=== PATIENT | male | born 1990 | race Caucasian/White ===

== ENCOUNTER 2016-08-02 22:00 | Emergency (ER) | payer MEDICAID ==
[~2016-08-02 22:00] MED LIST: No Historical Meds
[2016-08-02] MEDS ORDERED: AUGMENTIN 875 MG TAB As Ordered ONE (23:42)
[2016-08-02] MEDS ORDERED: NORCO 5/325MG TABLET (BULK) As Ordered ONE (23:42)
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
--- NOTE | 2016-08-02 23:53 | EDDOCDS ---
Physician Documentation [facility] Name: Mic Keating Age: 25 yrs Sex: Male : 1990 Arrival Date: 08/02/2016 Time: 22:00 Bed I2 / M2 Private MD: [facility] - Adults Disposition: 08/02/16 23:42 Discharged to Home/Self Care. Impression: Laceration without foreign body of oral cavity - tongue. - Condition is Stable. - Discharge Instructions: Mouth Laceration, Tongue Laceration. - Prescriptions for Augmentin 875- 125 mg Oral Tablet - take 1 tablet by ORAL route every 12 hours for 10 days; 20 tablet. - Medication Reconciliation, Local Pharmacy Hours form. - Follow up: [facility] - Adults; When: Call to arrange an appointment; Reason: Recheck today's complaints, Continuance of care. - Problem is new. - Symptoms are unchanged. Historical: - Allergies: No known drug Allergies; - Home Meds: 1. none - PMHx: none; - PSHx: none; - Social history: Smoking status: Patient uses tobacco products, heavy tobacco smoker. No barriers to communication noted, The patient speaks fluent Dutch, Speaks appropriately for age. - Family history: Not pertinent. - : The pt / caregiver states he / she is not on anticoagulants. Home medication list is obtained from the patient. - Exposure Risk Screening:: None identified. Vital Signs: 08/02 22:01 BP 127 / 60; Pulse 67; Resp 18 S; Temp 98.0(T); Pulse Ox 100% on R/A; Weight 63.5 kg / dd6 139.99 lbs (R); Height 5 ft. 9 in. (175.26 cm) (R); 23:50 BP 120 / 70; Pulse 72; Resp 18; Temp 96.5(O); Pulse Ox 98% on R/A; Pain 0/10; jmb 22:01 Body Mass Index 20.67 (63.50 kg, 175.26 cm) dd6 MDM: 23:41 HYDROcodone-acetaminophen 4 pack- 5 mg-325 mg 1 packets PO Per package directions; mo1 Dispense with patient. 1 po q4h prn for pain ordered. 23:41 Amoxicillin-Clavulanate 875 mg 1 tabs PO once ordered. mo1 Administered Medications: 23:46 Drug: HYDROcodone-acetaminophen 4 pack- 1 packets [hydrocodone 5 mg-acetaminophen 325 af2 mg tablet (1 tabs)] {Co-Signature: anam (Home Muller RN).} Route: PO; 23:46 Drug: Amoxicillin-Clavulanate 1 tabs [amoxicillin 875 mg-potassium clavulanate 125 mg af2 tablet (1 tabs)] Route: PO; Signatures: Abdulaziz Alvarado PA PA mo1 Home Muller RN RN kindrab Kaylin Camargo RN af2 Home mendieta MTDD
--- NOTE | 2016-08-05 00:53 | EDDOCDS ---
Physician Documentation [facility] Name: Mic Keating Age: 25 yrs Sex: Male : 1990 Arrival Date: 08/02/2016 Time: 22:00 Bed I2 / M2 Private MD: [facility] - Adults Disposition: 08/02/16 23:42 Discharged to Home/Self Care. Impression: Laceration without foreign body of oral cavity - tongue. - Condition is Stable. - Discharge Instructions: Mouth Laceration, Tongue Laceration. - Prescriptions for Augmentin 875- 125 mg Oral Tablet - take 1 tablet by ORAL route every 12 hours for 10 days; 20 tablet. - Medication Reconciliation, Local Pharmacy Hours form. - Follow up: [facility] - Adults; When: Call to arrange an appointment; Reason: Recheck today's complaints, Continuance of care. - Problem is new. - Symptoms are unchanged. Historical: - Allergies: No known drug Allergies; - Home Meds: 1. none - PMHx: none; - PSHx: none; - Social history: Smoking status: Patient uses tobacco products, heavy tobacco smoker. No barriers to communication noted, The patient speaks fluent Ukrainian, Speaks appropriately for age. - Family history: Not pertinent. - : The pt / caregiver states he / she is not on anticoagulants. Home medication list is obtained from the patient. - Exposure Risk Screening:: None identified. Vital Signs: 08/02 22:01 BP 127 / 60; Pulse 67; Resp 18 S; Temp 98.0(T); Pulse Ox 100% on R/A; Weight 63.5 kg / dd6 139.99 lbs (R); Height 5 ft. 9 in. (175.26 cm) (R); 23:50 BP 120 / 70; Pulse 72; Resp 18; Temp 96.5(O); Pulse Ox 98% on R/A; Pain 0/10; jmb 22:01 Body Mass Index 20.67 (63.50 kg, 175.26 cm) dd6 MDM: 23:41 HYDROcodone-acetaminophen 4 pack- 5 mg-325 mg 1 packets PO Per package directions; mo1 Dispense with patient. 1 po q4h prn for pain ordered. 23:41 Amoxicillin-Clavulanate 875 mg 1 tabs PO once ordered. mo1 08/03 08:01 T-Sheet-- Draft Copy was scanned into [employer] and attached to record. [facility] Administered Medications: 08/02 23:46 Drug: HYDROcodone-acetaminophen 4 pack- 1 packets [hydrocodone 5 mg-acetaminophen 325 af2 mg tablet (1 tabs)] {Co-Signature: anam (Home Muller RN).} Route: PO; 23:46 Drug: Amoxicillin-Clavulanate 1 tabs [amoxicillin 875 mg-potassium clavulanate 125 mg af2 tablet (1 tabs)] Route: PO; Signatures: Abdulaziz Alvarado PA PA mo1 Home Muller RN RN kindrab Dinah Lagos Amber RN af2 Home mendieta The chart was reviewed and I authenticate all verbal orders and agree with the evaluation and treatment provided.Attachments: 08/03 08:01 T-Sheet-- Draft Copy [facility] Chart Complete MTDD
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
--- NOTE | 2016-08-05 00:53 | EDDOCDS ---
Physician Documentation [facility] Name: Mic Keating Age: 25 yrs Sex: Male : 1990 Arrival Date: 08/02/2016 Time: 22:00 Bed I2 / M2 Private MD: [facility] - Adults Disposition: 08/02/16 23:42 Discharged to Home/Self Care. Impression: Laceration without foreign body of oral cavity - tongue. - Condition is Stable. - Discharge Instructions: Mouth Laceration, Tongue Laceration. - Prescriptions for Augmentin 875- 125 mg Oral Tablet - take 1 tablet by ORAL route every 12 hours for 10 days; 20 tablet. - Medication Reconciliation, Local Pharmacy Hours form. - Follow up: [facility] - Adults; When: Call to arrange an appointment; Reason: Recheck today's complaints, Continuance of care. - Problem is new. - Symptoms are unchanged. Historical: - Allergies: No known drug Allergies; - Home Meds: 1. none - PMHx: none; - PSHx: none; - Social history: Smoking status: Patient uses tobacco products, heavy tobacco smoker. No barriers to communication noted, The patient speaks fluent Bangladeshi, Speaks appropriately for age. - Family history: Not pertinent. - : The pt / caregiver states he / she is not on anticoagulants. Home medication list is obtained from the patient. - Exposure Risk Screening:: None identified. Vital Signs: 08/02 22:01 BP 127 / 60; Pulse 67; Resp 18 S; Temp 98.0(T); Pulse Ox 100% on R/A; Weight 63.5 kg / dd6 139.99 lbs (R); Height 5 ft. 9 in. (175.26 cm) (R); 23:50 BP 120 / 70; Pulse 72; Resp 18; Temp 96.5(O); Pulse Ox 98% on R/A; Pain 0/10; jmb 22:01 Body Mass Index 20.67 (63.50 kg, 175.26 cm) dd6 MDM: 23:41 HYDROcodone-acetaminophen 4 pack- 5 mg-325 mg 1 packets PO Per package directions; mo1 Dispense with patient. 1 po q4h prn for pain ordered. 23:41 Amoxicillin-Clavulanate 875 mg 1 tabs PO once ordered. mo1 08/03 08:01 T-Sheet-- Draft Copy was scanned into [employer] and attached to record. [facility] Administered Medications: 08/02 23:46 Drug: HYDROcodone-acetaminophen 4 pack- 1 packets [hydrocodone 5 mg-acetaminophen 325 af2 mg tablet (1 tabs)] {Co-Signature: anam (Home Muller RN).} Route: PO; 23:46 Drug: Amoxicillin-Clavulanate 1 tabs [amoxicillin 875 mg-potassium clavulanate 125 mg af2 tablet (1 tabs)] Route: PO; Signatures: Abdulaziz Alvarado PA PA mo1 Home Muller RN RN kindrab Dinah Lagos Amber RN af2 Home mendieta The chart was reviewed and I authenticate all verbal orders and agree with the evaluation and treatment provided.Attachments: 08/03 08:01 T-Sheet-- Draft Copy [facility] Chart Complete MTDD
== END 2016-08-02 23:52 | disposition home or self-care (01) ==
LOC: M ED 22:00
DX: S01.512A Laceration without foreign body of oral cavity, initial encounter (principal); W45.8XXA Other foreign body or object entering through skin, initial encounter; Y92.89 Other specified places as the place of occurrence of the external cause; Y93.89 Activity, other specified; Y99.8 Other external cause status; F17.200 Nicotine dependence, unspecified, uncomplicated

== ENCOUNTER → 2017-02-09 | Outpatient (CLI) | payer MEDICAID ==
[~2017-02-09] MED LIST changes: +CELE20TA PO; +HYDRO50TAB PO; +NICO21PAT TD; +TRAZO50TA PO
== END ==
LOC: M OUTALCOH 07:55
PROVIDERS: ATTEND Psychiatry & Neurology Psychiatry
DX: Z13.9 Encounter for screening, unspecified (principal); F11.20 Opioid dependence, uncomplicated; F14.20 Cocaine dependence, uncomplicated; F15.20 Other stimulant dependence, uncomplicated

== ENCOUNTER → 2017-03-19 | Outpatient (RCR) | payer MEDICAID | LOC: M OUTALCOH 03-05 18:18 | PROVIDERS: ATTEND Psychiatry & Neurology Psychiatry | DX: Z13.9 Encounter for screening, unspecified (principal); F11.20 Opioid dependence, uncomplicated; F14.20 Cocaine dependence, uncomplicated; F15.20 Other stimulant dependence, uncomplicated; F17.200 Nicotine dependence, unspecified, uncomplicated ==

== ENCOUNTER 2017-04-17 15:00 | Outpatient (RCR) | payer MEDICAID ==
[~2017-04-17 15:00] MED LIST changes: -CELE20TA PO; -HYDRO50TAB PO; -NICO21PAT TD; -TRAZO50TA PO
== END 2017-04-18 ==
LOC: M OUTALCOH 15:00
PROVIDERS: ATTEND Psychiatry & Neurology Psychiatry
DX: F11.20 Opioid dependence, uncomplicated (principal); F14.20 Cocaine dependence, uncomplicated; F15.20 Other stimulant dependence, uncomplicated; F17.200 Nicotine dependence, unspecified, uncomplicated

== ENCOUNTER 2017-04-22 08:41 | Inpatient (IN) | payer MEDICAID, SELFPAY ==
[~2017-04-22] VITALS: Ht 175.3 cm; Wt 59.0 kg
[2017-04-22 09:43] LABS: MEAN CORPUSCULAR HEMOGLOBIN 30.5 pg (27.0-33.0); MEAN CORPUSCULAR HGB CONC 34.6 g/dl (32.0-36.5); MEAN CORPUSCULAR VOLUME 88.3 fl (80.0-96.0); RED CELL DISTRIBUTION WIDTH 13.4 % (11.5-14.5); WHITE BLOOD COUNT 4.3 10^3/uL (4.0-10.0)
[2017-04-22] MEDS ORDERED: LORazepam 2 MG TAB PO STA (10:10)
[2017-04-22 10:13] LABS: METHADONE URINE NEGATIVE (NEGATIVE)
[2017-04-22] MEDS ORDERED: NICOTINE 21MG/24HR 1 EA TRANSDERMAL TD ONE (10:15)
[2017-04-22 10:21] LABS: ALBUMIN 4.4 GM/DL (3.2-5.2); ALBUMIN/GLOBULIN RATIO 1.19 (1.00-1.93); ALKALINE PHOSPHATASE 50 U/L (45-117); ALT/SGPT 28 U/L (12-78); ANION GAP 10 MEQ/L (8-16); AST/SGOT 25 U/L (15-37); BILIRUBIN,DIRECT 0.1 MG/DL (0.0-0.2); BILIRUBIN,TOTAL 0.3 MG/DL (0.2-1.0); BLOOD UREA NITROGEN 8 MG/DL (7-18); CALCIUM LEVEL 8.7 MG/DL (8.5-10.1); CARBON DIOXIDE LEVEL 25 MEQ/L (21-32); CHLORIDE LEVEL 107 MEQ/L (98-107); CREATININE FOR GFR 0.84 MG/DL (0.70-1.30); GLOMERULAR FILTRATION RATE > 60.0 (>60); GLUCOSE, FASTING 89 MG/DL (70-105); POTASSIUM SERUM 4.1 MEQ/L (3.5-5.1); SODIUM LEVEL 142 MEQ/L (136-145); TOTAL PROTEIN 8.1 GM/DL (6.4-8.2)
[2017-04-22] MEDS ORDERED: MOM 30ML SUSPENSION UDC PO PRN (16:00)
[2017-04-22] MEDS ORDERED: traZODone 50 MG TAB PO PRN (16:00)
[2017-04-22] MEDS ORDERED: MAALOX 30 ML SUSP *UDC PO PRN (16:00)
[2017-04-22] MEDS: CitaloPRAM (CeleXA) 20 MG TAB PO SCH (16:39)
[2017-04-22] MEDS: traZODone 50 MG TAB PO PRN (20:53)
[2017-04-22] MEDS: hydrOXYzine 50 MG TAB PO PRN (20:53)
[2017-04-23 06:53] VITALS: BP 118/58
[2017-04-23] MEDS: NICOTINE 21MG/24HR 1 EA TRANSDERMAL TD SCH (08:38)
[2017-04-23] MEDS: CitaloPRAM (CeleXA) 20 MG TAB PO SCH (08:38)
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
--- NOTE | 2017-04-23 10:08 | REP ---
CT cervical spine without contrast HISTORY: Attempted hanging COMPARISON: None There is no acute fracture or subluxation. There is no disc bulge or herniation. The spinal canal and neural foramina are patent. The intervertebral discs and vertebral bodies are normal in height. IMPRESSION: There is no acute fracture or subluxation. Signed by Arcenio Lockwood MD 04/23/2017 09:59 A
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
[2017-04-23] MEDS: ACETAMINOPHEN TAB 650MG DOSE (2X325MG) PO PRN (17:22)
[2017-04-23 18:00] VITALS: BP 119/62
[2017-04-23] MEDS: traZODone 50 MG TAB PO PRN (21:26)
[2017-04-23] MEDS: hydrOXYzine 50 MG TAB PO PRN (21:28)
[2017-04-24] MEDS: ACETAMINOPHEN TAB 650MG DOSE (2X325MG) PO PRN ×2 (06:18→12:19)
[2017-04-24 06:32] VITALS: BP 109/56
[2017-04-24] MEDS: CitaloPRAM (CeleXA) 20 MG TAB PO SCH (09:37)
[2017-04-24] MEDS: NICOTINE 21MG/24HR 1 EA TRANSDERMAL TD SCH (09:38)
[2017-04-24] MEDS ORDERED: HYDRO50TAB PO (13:09)
[2017-04-24] MEDS ORDERED: TRAZO50TA PO (13:09)
[2017-04-24] MEDS ORDERED: NICO21PAT TD (13:09)
[2017-04-24] MEDS ORDERED: CELE20TA PO (13:09)
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
== END 2017-04-24 14:30 | disposition home or self-care (01) | DRG 774 ==
LOC: M ED 08:41 → M ED INP 14:07 → M PSY 15:00
PROVIDERS: ADMIT Psychiatry & Neurology Psychiatry; ATTEND Psychiatry & Neurology Psychiatry
DX: F19.94 Other psychoactive substance use, unspecified with psychoactive substance-induced mood disorder (principal); F14.10 Cocaine abuse, uncomplicated; F15.10 Other stimulant abuse, uncomplicated; F10.10 Alcohol abuse, uncomplicated; F17.200 Nicotine dependence, unspecified, uncomplicated

== ENCOUNTER 2019-11-26 22:47 | Emergency (ER) | payer MEDICAID, OTHER, SELFPAY ==
[~2019-11-26] VITALS: Ht 172.7 cm; Wt 61.4 kg
[~2019-11-26 22:47] MED LIST changes: +CELE20TA PO; +HYDR1TAB33 PO; +NICO21PAT TD; +TRAZ1TAB10 PO
[2019-11-27 01:01] VITALS: BP 123/86
== END 2019-11-27 01:03 | disposition home or self-care (01) ==
LOC: M ED 22:47
DX: F43.20 Adjustment disorder, unspecified (principal); F33.9 Major depressive disorder, recurrent, unspecified; Z79.899 Other long term (current) drug therapy; F17.210 Nicotine dependence, cigarettes, uncomplicated; F14.20 Cocaine dependence, uncomplicated; F15.20 Other stimulant dependence, uncomplicated

== ENCOUNTER → 2020-05-08 | Outpatient (REF) | payer OTHER | LOC: M LAB REF 15:22 | PROVIDERS: ATTEND Surgery | DX: U07.1 COVID-19 (principal) ==

== ENCOUNTER 2020-10-23 09:10 | Emergency (ER) | payer OTHER ==
[~2020-10-23] VITALS: Ht 175.3 cm; Wt 59.1 kg
[2020-10-23] MEDS ORDERED: SUBO4MIS SL (09:45)
[2020-10-23] MEDS ORDERED: NS 1,000 ML IV ONE (10:05)
[2020-10-23 10:36] LABS: BASO # 0.1 10^3/uL (0.0-0.2); BASO % 0.3 % (0.0-1.0); EOS % 0.1 % (0.0-3.0); HEMATOCRIT 44.1 % (42.0-52.0); HEMOGLOBIN 14.5 g/dl (13.5-17.5); LYMPH # 0.8 10^3/uL (1.5-5.0); MEAN CORPUSCULAR HEMOGLOBIN 28.6 pg (27.0-33.0); MEAN CORPUSCULAR HGB CONC 32.9 g/dl (32.0-36.5); MONO # 1.1 10^3/uL (0.0-0.8); MONO % 7.3 % (2.0-8.0); NEUTROPHILS # 13.3 10^3/uL (1.5-8.5); NEUTROPHILS % 86.6 % (36.0-66.0); PLATELET COUNT, AUTOMATED 144 10^3/uL (150-450); RED BLOOD COUNT 5.07 10^6/uL (4.30-6.10); WHITE BLOOD COUNT 15.4 10^3/uL (4.0-10.0)
[2020-10-23 10:54] LABS: ALBUMIN 3.9 GM/DL (3.2-5.2); ALT/SGPT 63 U/L (12-78); BILIRUBIN,DIRECT 0.2 MG/DL (0.0-0.2); BILIRUBIN,TOTAL 0.6 MG/DL (0.2-1.0); BLOOD UREA NITROGEN 15 MG/DL (7-18); CARBON DIOXIDE LEVEL 25 MEQ/L (21-32); CHLORIDE LEVEL 102 MEQ/L (98-107); CREATININE FOR GFR 0.62 MG/DL (0.70-1.30); GLOMERULAR FILTRATION RATE > 60.0 (>60); GLUCOSE, FASTING 71 MG/DL (70-100); POTASSIUM SERUM 4.2 MEQ/L (3.5-5.1); SODIUM LEVEL 134 MEQ/L (136-145); TOTAL PROTEIN 7.1 GM/DL (6.4-8.2)
[2020-10-23 11:00] LABS: ERYTHROCYTE SEDIMENTATION RATE 18 mm/hr (0-15)
[2020-10-23 11:04] LABS: MONO REFLEX EBV COMP NEGATIVE (NEGATIVE)
[2020-10-23] MEDS ORDERED: ISOVUE-370 76% 100ML VIAL As Ordered ONE (11:09)
--- NOTE | 2020-10-23 11:53 | REP ---
INDICATION: severe tonsillar swelling, swelling into R side neck. COMPARISON: None. TECHNIQUE: Axial CT images with multiplanar reconstructions with contrast. FINDINGS: The tonsils appear swollen bilaterally, greater on the right. There is no definite abscess formation. There is encroachment on the airway but the airway however the airway remains patent. Vascular structures appear unremarkable. Paranasal sinuses and mastoid air cells appear clear. Scattered cervical chain lymph nodes are noted without CT findings of lymphadenopathy. There is apparent tongue piercing, with metallic object associated with the tongue in midline. IMPRESSION: The tonsils appears swollen bilaterally, greater on the right. The airway remains patent. No definite abscess. No findings of lymphadenopathy. The swelling appears to be limited to the area of the tongue base and supraglottic regions, may extend to the level of the glottis. <Electronically signed by Colton Abreu > 10/23/20 [id number]
[2020-10-23] MEDS ORDERED: AMPICILLIN SOD/SULBACTAM SOD 3 GM in D5W MINI-BAG PLUS 100 ML IV ONE (12:10)
[2020-10-23] MEDS ORDERED: dexameTHASONE 20MG/5ML VIAL (J1100 PER 1MG) IV ONE (12:10)
[2020-10-23] MEDS ORDERED: AUGM875T28 PO (12:27)
[2020-10-23] MEDS ORDERED: ACETAMINOPHEN 325 MG TAB PO ONE (12:30)
[2020-10-23 13:39] VITALS: BP 129/68
[2020-10-24 16:10] LABS: EBV AB TO NUCLEAR ANTIGEN >600.0 U/mL (0.0-17.9); EBV VIRAL CAPSID AG IgM <36.0 U/mL (0.0-35.9)
== END 2020-10-23 14:02 | disposition home or self-care (01) ==
LOC: EDBD 09:10 → M ED 09:10
DX: J03.90 Acute tonsillitis, unspecified (principal); R05 Cough; R07.0 Pain in throat; R50.81 Fever presenting with conditions classified elsewhere; M79.10 Myalgia, unspecified site; F17.200 Nicotine dependence, unspecified, uncomplicated
CPT/HCPCS: 70491; 80048; 80076; 83605; 85025; 85652; 86140; 86308; 86664; 86665; 87040; 87880; 96365; 96375; 99284; J1100; Q9967

== ENCOUNTER 2021-01-11 23:20 | Emergency (ER) | payer OTHER ==
[~2021-01-11 23:20] MED LIST changes: +AUGM875T28 PO; +SUBO4MIS SL
[2021-01-13] MEDS ORDERED: BACI500O21 TOP (00:29)
[2021-01-13] MEDS ORDERED: CEPH500C PO (00:29)
== END 2021-01-12 00:42 | disposition left against medical advice (07) ==
LOC: M ED 23:20
DX: Z53.21 Procedure and treatment not carried out due to patient leaving prior to being seen by health care provider (principal)

== ENCOUNTER 2021-01-12 18:41 | Emergency (ER) | payer OTHER ==
[~2021-01-12] VITALS: Ht 172.7 cm; Wt 55.4 kg
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
[2021-01-12] MEDS ORDERED: LIDOCAINE 1% MDV 20ML VIAL SC ONE (23:40)
[2021-01-13] MEDS ORDERED: NEOSPORIN OINT 0.9 GM PKT TOP ONE (00:10)
[2021-01-13] MEDS ORDERED: BOOSTRIX/ADACEL VACCINE (DIPHTH/PERTUSS/ACELL/TETANUS) 0.5ML SYR IM ONE (00:15)
[2021-01-13] MEDS ORDERED: CEPHALEXIN 500 MG CAP PO ONE (00:15)
[2021-01-13] MEDS ORDERED: CEPH500C PO (00:29)
[2021-01-13] MEDS ORDERED: BACI500O21 TOP (00:29)
[2021-01-13 00:39] VITALS: BP 110/74
== END 2021-01-13 00:41 | disposition home or self-care (01) ==
LOC: M ED 18:41
DX: S61.411A Laceration without foreign body of right hand, initial encounter (principal); W26.8XXA Contact with other sharp object(s), not elsewhere classified, initial encounter; Y92.009 Unspecified place in unspecified non-institutional (private) residence as the place of occurrence of the external cause; Y93.89 Activity, other specified; Y99.9 Unspecified external cause status; F17.200 Nicotine dependence, unspecified, uncomplicated

== ENCOUNTER 2021-10-21 02:30 | Emergency (ER) | payer OTHER ==
[~2021-10-21] VITALS: Ht 172.7 cm; Wt 56.7 kg
[~2021-10-21 02:30] MED LIST changes: +BACI500O21 TOP; +CEPH500C PO
[2021-10-21 03:18] LABS: BASO # 0.1 10^3/uL (0.0-0.2); BASO % 1.5 % (0.0-1.0); EOS # 0.1 10^3/uL (0.0-0.5); EOS % 1.3 % (0.0-3.0); HEMATOCRIT 38.6 % (42.0-52.0); HEMOGLOBIN 13.4 g/dl (13.5-17.5); LYMPH % 22.1 % (24.0-44.0); MEAN CORPUSCULAR HEMOGLOBIN 29.3 pg (27.0-33.0); MEAN CORPUSCULAR HGB CONC 34.7 g/dl (32.0-36.5); MEAN CORPUSCULAR VOLUME 84.3 fl (80.0-96.0); MONO # 0.4 10^3/uL (0.0-0.8); MONO % 8.9 % (2.0-8.0); NEUTROPHILS # 3.1 10^3/uL (1.5-8.5); PLATELET COUNT, AUTOMATED 215 10^3/uL (150-450); RED BLOOD COUNT 4.58 10^6/uL (4.30-6.10); WHITE BLOOD COUNT 4.7 10^3/uL (4.0-10.0)
[2021-10-21 03:35] LABS: INR 1.09; PROTHROMBIN TIME 14.5 SECONDS (12.7-14.5)
[2021-10-21 03:36] LABS: PARTIAL THROMBOPLASTIN TIME 28.5 SECONDS (25.9-37.0)
[2021-10-21 03:38] LABS: ALBUMIN 4.1 GM/DL (3.2-5.2); ALT/SGPT 32 U/L (12-78); AMYLASE 25 U/L (25-115); BILIRUBIN,DIRECT 0.2 MG/DL (0.0-0.2); BILIRUBIN,TOTAL 0.7 MG/DL (0.2-1.0); BLOOD UREA NITROGEN 16 MG/DL (7-18); CARBON DIOXIDE LEVEL 30 MEQ/L (21-32); CHLORIDE LEVEL 106 MEQ/L (98-107); CREATININE FOR GFR 0.98 MG/DL (0.70-1.30); ETHYL ALCOHOL (ETHANOL) < 0.003 % (0.000-0.010); GLOMERULAR FILTRATION RATE > 60.0 (>60); GLUCOSE, FASTING 87 MG/DL (70-100); LIPASE 48 U/L (73-393); POTASSIUM SERUM 4.2 MEQ/L (3.5-5.1); SODIUM LEVEL 140 MEQ/L (136-145); TOTAL PROTEIN 7.4 GM/DL (6.4-8.2)
[2021-10-21 03:40] LABS: CK-MB VALUE MASS 8.4 NG/ML (<3.6); MB/CK RELATIVE INDEX 2.55 (< OR =4)
[2021-10-21] MEDS ORDERED: KLON0.5T PO (04:12)
[2021-10-21] MEDS ORDERED: KETOROLAC 30 MG/ML 1ML VIAL IV ONE (04:15)
[2021-10-21 04:45] VITALS: BP 132/65
== END 2021-10-21 05:10 | disposition home or self-care (01) ==
LOC: M ED 02:30
DX: S40.021A Contusion of right upper arm, initial encounter (principal); S40.022A Contusion of left upper arm, initial encounter; Y04.8XXA Assault by other bodily force, initial encounter; Y92.89 Other specified places as the place of occurrence of the external cause; Y93.9 Activity, unspecified; Y99.9 Unspecified external cause status; F19.10 Other psychoactive substance abuse, uncomplicated
CPT/HCPCS: 70450; 71045; 72125; 73030; 73080; 73110; 80048; 80076; 82077; 82150; 82550; 82553; 83605; 83690; 85025; 85610; 85730; 86850; 86900; 86901; 93041; 94760; 96374; 99285; J1885

== ENCOUNTER → 2024-05-18 | Outpatient (CLI) | payer MEDICAID ==
[~2024-05-18] MED LIST changes: +KLON0.5T8 PO
== END ==
LOC: M OUTALCOH 09:14
PROVIDERS: ATTEND Psychiatry & Neurology Psychiatry
DX: Z03.89 Encounter for observation for other suspected diseases and conditions ruled out (principal); F17.200 Nicotine dependence, unspecified, uncomplicated

== ENCOUNTER 2024-05-26 10:41 | Outpatient (RCR) | payer MEDICAID | END 2024-06-18 | LOC: M OUTALCOH 10:41 | PROVIDERS: ATTEND Psychiatry & Neurology Psychiatry | DX: Z03.89 Encounter for observation for other suspected diseases and conditions ruled out (principal); F17.200 Nicotine dependence, unspecified, uncomplicated ==

== ENCOUNTER 2025-01-17 08:20 | Emergency (ER) | payer MEDICAID, SELFPAY ==
[~2025-01-17] VITALS: Ht 172.7 cm; Wt 58.9 kg
[2025-01-17] MEDS ORDERED: HOME MED LIST COMPLETE! XX SCH (09:05)
[2025-01-17 09:11] LABS: BASO # 0.1 10^3/uL (0.0-0.2); BASO % 0.8 % (0.0-1.0); EOS # 0.1 10^3/uL (0.0-0.5); EOS % 0.5 % (0.0-3.0); LYMPH # 1.4 10^3/uL (1.5-5.0); LYMPH % 10.9 % (24.0-44.0); MONO # 0.8 10^3/uL (0.0-0.8); MONO % 6.6 % (2.0-8.0); NEUTROPHILS # 10.4 10^3/uL (1.5-8.5); NEUTROPHILS % 80.8 % (36.0-66.0); PLATELET COUNT, AUTOMATED 223 10^3/uL (150-450)
[2025-01-17] MEDS: levETIRAcetam INJection 500 MG in DEXTROSE 5% (D5W) MINI-BAG PLU 100 ML IV ONE (09:12)
[2025-01-17 09:21] LABS: ALT/SGPT 24 U/L (7.0-40); AST/SGOT 30 U/L (<34); CALCIUM LEVEL 9.2 MG/DL (8.5-10.1); CARBON DIOXIDE LEVEL 27 MMOL/L (20-31); CHLORIDE LEVEL 104 MMOL/L (98-107); CREATININE FOR GFR 0.98 MG/DL (0.70-1.30); GLOMERULAR FILTRATION RATE > 90.0 (>60); MAGNESIUM LEVEL 1.9 MG/DL (1.8-2.4); PHOSPHORUS LEVEL 4.0 MG/DL (2.5-4.9); POTASSIUM SERUM 3.9 MMOL/L (3.5-5.1); SODIUM LEVEL 142 MMOL/L (136-145)
[2025-01-17] MEDS: BOOSTRIX VACCINE (TETANUS/DIPHTH/ACEL. PERTUSSIS) 0.5 ML SYR IM.IMMUN ONE (10:03)
[2025-01-17] MEDS ORDERED: KEPP1TAB PO (10:29)
[2025-01-17 10:30] VITALS: BP 116/59; TEMP 99.1; O2SAT 94
[2025-01-17] MEDS ORDERED: EEG XX (10:31)
[2025-01-17 10:43] LABS: BARBITURATES URINE NEGATIVE (NEGATIVE); BENZODIAZEPINES URINE NEGATIVE (NEGATIVE); CANNABINOIDS URINE NEGATIVE (NEGATIVE); METHADONE URINE NEGATIVE (NEGATIVE); OPIATES URINE NEGATIVE (NEGATIVE); PHENCYCLIDINE URINE NEGATIVE (NEGATIVE)
[2025-01-17 10:45] LABS: AMPHETAMINES LEVEL URINE POSITIVE (NEGATIVE); COCAINE METABOLITE URINE POSITIVE (NEGATIVE)
== END 2025-01-17 11:04 | disposition home or self-care (01) ==
LOC: M ED 08:20
DX: R56.9 Unspecified convulsions (principal); F19.10 Other psychoactive substance abuse, uncomplicated; F17.290 Nicotine dependence, other tobacco product, uncomplicated
CPT/HCPCS: 70450; 72125; 80048; 80076; 80307; 83735; 84100; 85025; 90471; 90715; 93041; 94760; 96365; 99284; J1953

== ENCOUNTER 2025-04-12 23:46 | Emergency (ER) | payer SELFPAY ==
[~2025-04-12 23:46] MED LIST changes: +EEG XX; +KEPP1TAB PO
[2025-04-13] MEDS: AMPICILLIN SOD/SULBACTAM SOD 3 GM in DEXTROSE 5% (D5W) MINI-BAG PLU 100 ML IV ONE (00:18)
[2025-04-13] MEDS: LIDOCAINE 2% MDV 20 ML VIAL SC ONE (00:20)
[2025-04-13] MEDS: NS (Normal Saline) 0.9% 1,000 ML IV ONE (00:21)
[2025-04-13] MEDS: levETIRAcetam INJection 1,000 MG in IV 1 EA IV ONE (01:14)
[2025-04-13] MEDS: TETANUS/DIPHTH/ACEL. PERTUSSIS 0.5 ML SYR IM.IMMUN ONE (01:15)
[2025-04-13] MEDS ORDERED: AMOX875T2 PO (05:38)
[2025-04-13] MEDS ORDERED: KEPP1TAB PO (05:38)
[2025-04-13 06:00] VITALS: BP 132/76; TEMP 96.9; O2SAT 99
== END 2025-04-13 06:10 | disposition home or self-care (01) ==
LOC: M ED 23:46
DX: S01.81XA Laceration without foreign body of other part of head, initial encounter (principal); Y04.8XXA Assault by other bodily force, initial encounter; Y92.9 Unspecified place or not applicable; Y93.9 Activity, unspecified; Y99.9 Unspecified external cause status; G40.909 Epilepsy, unspecified, not intractable, without status epilepticus; F14.10 Cocaine abuse, uncomplicated
CPT/HCPCS: 12015; 70450; 70486; 71045; 72125; 73030; 90471; 90715; 96365; 96366; 96367; 96374; 96375; 99284; J0295; J1953; J3010